=== PATIENT | female | born 1985 | race Asian ===

== ENCOUNTER 2017-12-01 02:08 | Emergency (ER) | payer MEDICAID, OTHER ==
[~2017-12-01] VITALS: Ht 165.1 cm; Wt 52.0 kg
[2017-12-01] MEDS ORDERED: ONDANSETRON 4MG ODT PO STA (02:20)
[2017-12-01] MEDS ORDERED: SODIUM CHLORIDE 0.9% 1,000 ML IV ONE (02:20)
[2017-12-01 03:18] LABS: CHLORIDE 106 mEq/L (98-107)
[2017-12-01 03:20] LABS: HCG SCREEN NEGATIVE
[2017-12-01 03:21] LABS: AMMONIA 62 uMol/L (<32)
[2017-12-01 03:36] LABS: CLARITY URINE CLEAR (CLEAR); COLOR URINE YELLOW (YELLOW); KETONES URINE NEGATIVE (NEGATIVE); LEUKOCYTE ESTERASE URINE TRACE (NEGATIVE); NITRITE URINE NEGATIVE (NEGATIVE); OCCULT BLOOD URINE NEGATIVE (NEGATIVE); PH URINE >=9.0 (4.5-8.0); PROTEIN URINE NEGATIVE (NEGATIVE); SPECIFIC GRAVITY URINE 1.007 (1.005-1.030); UROBILINOGEN URINE 0.2 E.U./dL (0.2-1.0)
[2017-12-01 03:52] LABS: ETHANOL BLOOD 280 mg/dL
[2017-12-01] MEDS ORDERED: KCL 20MEQ/100ML PREMIX 100 ML IV ONE (04:00)
[2017-12-01] MEDS ORDERED: POTASSIUM CHLORIDE INJ 20 MEQ in SODIUM CHLORIDE 0.9% 90 ML IV NR (04:00)
[2017-12-01] MEDS ORDERED: LACTULOSE 20G/30ML UDC PO NR (04:00)
[2017-12-01 04:02] LABS: *AMPHETAMINES SCREEN URINE NEGATIVE (NEGATIVE); *BARBITURATES SCREEN URINE NEGATIVE (NEGATIVE); *BENZODIAZEPINES SCREEN URINE NEGATIVE (NEGATIVE); *COCAINE SCREEN URINE NEGATIVE (NEGATIVE); CANNABINOID URINE SCREEN NEGATIVE (NEGATIVE); METHADONE URINE SCREEN NEGATIVE (NEGATIVE); OPIATES URINE SCREEN NEGATIVE (NEGATIVE); PHENCYCLIDINE URINE SCREEN NEGATIVE (NEGATIVE)
[2017-12-01] MEDS ORDERED: SODIUM CHLORIDE 0.9% 1000ML BAG (SEPSIS BOLUS) IV NR (04:15)
[2017-12-01 04:18] LABS: BASOPHILS % 0.2 % (0.0-2.0); EOSINOPHILS % 0.1 % (0.0-5.0); HEMATOCRIT. 43.5 % (36.0-48.0); LYMPHOCYTES % 29.4 % (20.0-50.0); MEAN CORPUSCULAR HEMOGLOBIN 30.6 pg (28.0-32.0); MEAN PLATELET VOLUME 9.2 fl (7.4-10.4); MONOCYTES % 7.2 % (2.0-8.0); NEUTROPHILS % 63.1 % (40.0-76.0); PLATELET 209 x1000/uL (130-400); RED BLOOD CELL COUNT 4.89 mill/uL (4.2-5.4); RED CELL DISTRIBUTION WIDTH 15.5 % (11.6-14.6)
[2017-12-01 04:24] LABS: INR 1.1; PROTHROMBIN TIME 11.3 sec (9.4-11.6)
[2017-12-01] MEDS ORDERED: POTASSIUM CHLORIDE INJ 20 MEQ in SODIUM CHLORIDE 0.9% 100 ML IV NR (04:26)
[2017-12-01 06:55] VITALS: BP 94/57
== END 2017-12-01 07:12 | disposition home or self-care (01) ==
LOC: ER 02:08
DX: T51.0X1A Toxic effect of ethanol, accidental (unintentional), initial encounter (principal); F10.921 Alcohol use, unspecified with intoxication delirium; K76.9 Liver disease, unspecified; E87.1 Hypo-osmolality and hyponatremia; N83.202 Unspecified ovarian cyst, left side; E87.6 Hypokalemia; E87.2 Acidosis; E72.4 Disorders of ornithine metabolism; Y90.8 Blood alcohol level of 240 mg/100 ml or more; Y92.018 Other place in single-family (private) house as the place of occurrence of the external cause
CPT/HCPCS: 36415; 70450; 71045; 72125; 74176; 80053; 80305; 80307; 80329; 81003; 82140; 83605; 83690; 84484; 84703; 85025; 85610; 93005; 96361; 96365; 96366; 99285; G0482; J3480; J7030; J7040; Z7610; J7050